=== PATIENT | male | born 1975 | race American Indian/Alaskan Native ===

== ENCOUNTER 2018-02-04 13:06 | Emergency (ER) | payer SELFPAY ==
[2018-02-04 13:14] VITALS: BP 104/72; PULSE 87; RESP 18; TEMP 99.2; O2SAT 97
--- NOTE | 2018-02-04 14:05 | C.PDOC ---
History Of Present Illness Pt c/o left groin area swelling. Time Seen by Provider: 02/04/18 14:01 Chief Complaint (Nursing): Groin Pain History Per: Patient Onset/Duration Of Symptoms: Days (a few months), Intermittent Episodes Current Symptoms Are (Timing): Still Present Severity: Moderate Location Of Pain/Discomfort: Other (Left groin area) Quality Of Discomfort: "Pain" Exacerbating Factors: Upright Position, Walking Additional History Per: Prior Records Past Medical History Reviewed: Historical Data, Nursing Documentation, Vital Signs Vital Signs: Last Vital Signs Temp 99.2 F 02/04/18 13:11 Pulse 87 02/04/18 13:11 Resp 18 02/04/18 13:11 BP 104/72 02/04/18 13:11 Pulse Ox 97 02/04/18 13:11 - Medical History PMH: No Chronic Diseases Surgical History: No Surg Hx Family History: States: Unknown Family Hx - Social History Hx Alcohol Use: Yes Hx Substance Use: No - Immunization History Hx Tetanus Toxoid Vaccination: No Hx Influenza Vaccination: No Hx Pneumococcal Vaccination: No Review Of Systems Except As Marked, All Systems Reviewed And Found Negative. Constitutional: Negative for: Fever, Weakness Cardiovascular: Negative for: Chest Pain Respiratory: Negative for: Shortness of Breath Gastrointestinal: Negative for: Vomiting, Abdominal Pain, Constipation Genitourinary: Negative for: Dysuria, Scrotal Pain Musculoskeletal: Negative for: Neck Pain, Back Pain Skin: Negative for: Rash Neurological: Negative for: Weakness, Numbness Physical Exam - Physical Exam Appears: Non-toxic, No Acute Distress Skin: Normal Color, Warm, Dry, No Rash Head: Atraumatic, Normacephalic Eye(s): bilateral: Normal Inspection, PERRL, EOMI Neck: Normal ROM, Supple Cardiovascular: Rhythm Regular Respiratory: Normal Breath Sounds, No Accessory Muscle Use Gastrointestinal/Abdominal: Soft, No Tenderness, No Hernia (No hernia at present ) Back: No CVA Tenderness Male Genital: No Testicular Tenderness, No Testicular Swelling, No Scrotal Swelling Extremity: Normal ROM Neurological/Psych: Oriented x3, Normal Motor, Normal Sensation ED Course And Treatment O2 Sat by Pulse Oximetry: 97 Pulse Ox Interpretation: Normal Disposition Counseled Patient/Family Regarding: Diagnosis, Need For Followup - Disposition Referrals: [facility] at [facility] [Outside] Alec Moy MD [Staff Provider] - Disposition: HOME/ ROUTINE Disposition Time: 14:07 Condition: STABLE Additional Instructions: Follow up with a General Surgeon for further evaluation and treatment. Return to the ER if you develop vomiting, abdominal pain, hernia does not go back in, worsening of symptoms or if you have any other concerns. Instructions: Groin Hernia (DC) - Clinical Impression Clinical Impression: Left inguinal hernia
== END 2018-02-04 14:11 | disposition home or self-care (01) ==
LOC: C.ER 13:06
DX: K40.90 Unilateral inguinal hernia, without obstruction or gangrene, not specified as recurrent (principal)